=== PATIENT | female | born 1985 | race Two or more races ===

== ENCOUNTER 2025-05-04 09:58 | Outpatient (CLI) | payer MEDICAID ==
[2025-05-04 11:18] LABS: INR 1.04 (0.9-1.15); Partial Thromboplastin Time 30.2 SEC (24.5-34.5); Prothrombin Time 11.0 sec (9.3-11.8)
[2025-05-04 11:36] LABS: Hematocrit 45.5 % (36.0-46.0); Hemoglobin 16.2 g/dL (12.2-16.2); Mean Corpuscular Hemoglobin 31.8 pg (28.0-32.0); Mean Corpuscular Volume 89.3 fL (80.0-100.0); Nucleated Red Blood Cells % 0.3 %
[2025-05-04 11:38] LABS: Albumin 4.5 g/dL (3.2-4.8); Alkaline Phosphatase 87 U/L (46-116); Anion Gap 10 (5-15); BUN/Creatinine Ratio 14.0 (10.0-20.0); Calcium 9.1 mg/dL (8.7-10.4); Carbon Dioxide 25 mmol/L (20-31); Chloride 104 mmol/L (98-107); Ferritin 66.1 ng/mL (10-291); Glucose 85 mg/dL (74-106); Potassium 3.9 mmol/L (3.5-5.1); Sodium 139 mmol/L (136-145); Total Protein 7.7 g/dL (5.7-8.2)
[2025-05-04 11:40] LABS: Alanine Aminotransferase 49 U/L (7-40); Blood Urea Nitrogen 6 mg/dL (9-23)
[2025-05-04 12:13] LABS: Bilirubin, Total 1.1 mg/dL (0.2-1.0)
[2025-05-05 11:44] LABS: Hepatitis A Total Antibody Positive (Negative); Hepatitis B Surface Antigen Negative (Negative); Hepatitis C Antibody Negative (Negative)
== END 2025-05-04 17:00 | disposition home or self-care (01) ==
LOC: LAB 09:58
PROVIDERS: ATTEND Internal Medicine Hematology & Oncology
DX: E11.65 Type 2 diabetes mellitus with hyperglycemia (principal); E83.32 Hereditary vitamin D-dependent rickets (type 1) (type 2); E05.90 Thyrotoxicosis, unspecified without thyrotoxic crisis or storm; D69.6 Thrombocytopenia, unspecified; K74.60 Unspecified cirrhosis of liver; K76.0 Fatty (change of) liver, not elsewhere classified; R53.83 Other fatigue; R94.5 Abnormal results of liver function studies; Z13.1 Encounter for screening for diabetes mellitus
CPT/HCPCS: 36415; 80053; 82105; 82728; 82746; 84443; 85025; 85610; 85730; 86038; 86703; 86704; 86706; 86708; 86803; 87340